=== PATIENT | male | born 1990 | race African-American/Black ===

== ENCOUNTER 2021-06-16 13:36 | Emergency (ER) | payer OTHER, SELFPAY ==
--- NOTE | ~2021-06-16 | XR_ITS ---
EXAMINATION: RIGHT HAND AND WRIST X-RAY CLINICAL INFORMATION: Pain and swelling COMPARISON: None TECHNIQUE: 4 views of the right hand and wrist FINDINGS: Bone alignment is normal. No fracture or dislocation seen. Joint spaces are normal. Soft tissues are normal. XR/XR hand wrist RT IMPRESSION: Unremarkable exam.
[2021-06-16 14:49] VITALS: BP 130/70; PULSE 75; RESP 18; TEMP 36.8; O2SAT 98; BMI 50.8
--- NOTE | 2021-06-16 16:27 | ED_ITS ---
HPI - Extremity Problem General Chief complaint: Extremity Injury, Upper Stated complaint: r hand inj at work Time Seen by Provider: 06/16/21 16:26 Source: patient Mode of arrival: ambulatory Limitations: no limitations History of Present Illness HPI Narrative: Patient works as a massage therapist right-handed complaining of pain in the right thumb for last 2 months especially after working no direct trauma no other joint pain Related Data Previous Rx's Medication Instructions Recorded diclofenac sodium 1 % topical gel 2 g TOPICAL QID #100 g 06/16/21 (Voltaren Arthritis Pain) Allergies Allergy/AdvReac Type Severity Reaction Status Date / Time No Known Allergies Allergy Verified 06/16/21 14:49 Review of Systems Review of Systems: Yes all other systems are reviewed and are negative [facility] Past Medical History Medical History Anxiety HTN (hypertension) Physical Exam Vital Signs: Vital Signs: Last Vital Signs Temp 98.3 F 06/16/21 14:49 Pulse 75 06/16/21 14:49 Resp 18 06/16/21 14:49 BP 130/70 06/16/21 14:49 Pulse Ox 98 06/16/21 14:49 Body Mass Index 50.8 Const: General: comfortable and no acute distress Orientation/consciousness: patient oriented x3 Neuro: General: patient oriented x3 Extrem: Hand/finger images: 1. Soft tissue tenderness on the palmar aspect of right thumb, tendons are intact good range of movement, FHL intact MDM - Extremity (Nontraumatic) MDM Narrative Medical decision making narrative: Patient with muscular tenderness of the right thumb after work-related overuse of right thumb x-ray negative for any bony deformity patient advised to give rest to the right thumb use local diclofenec gel for discomfort Discharge Plan Discharge Clinical Impression: Sprain of right thumb Qualifiers: Encounter type: initial encounter Sprain of finger site: unspecified site Qualified Code(s): S63.601A - Unspecified sprain of right thumb, initial encou nter Patient Disposition: Home, Self-Care Instructions: Sprain (ED) Additional Instructions: Rest to your right thumb, avoid repeated movements of right thumb Voltaren gel locally for pain Prescriptions: New diclofenac sodium [Voltaren Arthritis Pain] 1 % gel 2 g topical QID Qty: 100 RF: 0 Stand Alone Forms: Work/School Release
== END 2021-06-16 16:50 | disposition home or self-care (01) ==
LOC: HO.ED 16:53
PROVIDERS: Emergency Provider Internal Medicine; PCP Physician Assistant Medical
DX: S63.601A Unspecified sprain of right thumb, initial encounter (principal); M25.531 Pain in right wrist; X58.XXXA Exposure to other specified factors, initial encounter; Y93.9 Activity, unspecified; Y92.9 Unspecified place or not applicable; Y99.0 Civilian activity done for income or pay
CPT/HCPCS: 73110; 73130; 99283

== ENCOUNTER → 2023-08-25 10:09 | Outpatient (BNVA) | payer SELFPAY | PROVIDERS: PCP Physician Assistant Medical; Visit Provider Physician Assistant | DX: Z02.79 Encounter for issue of other medical certificate (principal) ==